=== PATIENT | male | born 1980 | race Caucasian/White ===

== ENCOUNTER 2020-10-24 00:20 | Emergency (ER) | payer OTHER ==
[2020-10-24 00:35] VITALS: TEMP 98.1; BMI 28.8
[2020-10-24] MEDS ORDERED: NALOXONE HCL 0.4 MG/ML VIAL IVPUSH ONE (00:49)
[2020-10-24] MEDS ORDERED: NALOXONE HCL 0.4 MG/ML VIAL ONE (00:57)
[2020-10-24 03:42] VITALS: BP 122/76; PULSE 92
== END 2020-10-24 03:42 | disposition home or self-care (01) ==
LOC: JER 00:20
PROC: 3E033GC Introduction of Other Therapeutic Substance into Peripheral Vein, Percutaneous Approach (ICD-10-PCS; principal; 2020-10-24)
DX: T40.1X1A Poisoning by heroin, accidental (unintentional), initial encounter (principal)
CPT/HCPCS: 99284-25

== ENCOUNTER 2021-08-31 12:27 | Emergency (ER) | payer OTHER ==
[2021-08-31 13:06] VITALS: BP 105/67; PULSE 88; TEMP 97.4; BMI 25.0
[2021-08-31] MEDS ORDERED: KETOROLAC TROMETHAMINE 30 MG/1 ML VIAL IM ONE (13:19)
[2021-08-31] MEDS ORDERED: KETOROLAC TROMETHAMINE 30 MG/1 ML VIAL ONE (14:21)
== END 2021-08-31 15:15 | disposition home or self-care (01) ==
LOC: JER 12:27
PROC: 3E023GC Introduction of Other Therapeutic Substance into Muscle, Percutaneous Approach (ICD-10-PCS; principal; 2021-08-31)
DX: U07.1 COVID-19 (principal)
CPT/HCPCS: 99284-25